=== PATIENT | male | born 1945 | race Hispanic/Latino ===

== ENCOUNTER 2019-07-29 07:46 | Emergency (ER) | payer SELFPAY ==
--- NOTE | 2019-07-29 09:31 | Emergency Department Report ---
ED Altered Mental Status HPI - General Chief Complaint: Altered Mental Status Stated Complaint: PULLED OUT CATH/AMS Time Seen by Provider: 07/29/19 09:06 Source: patient Mode of arrival: Ambulatory Limitations: No Limitations - History of Present Illness Initial Comments: Mr. Tirado is a 73-year-old male with history of hypertension, CVA, dementia, diabetes mellitus who presents with lethargy. Recently pulled out Quintana. Patient is nonverbal. Hx obtained from nurse report and EMR. Last month admitted for sepsis UTI pneumonia here at this hospital. provided additional history. After discharge from this hospital, Mr. Tirado was admitted at the [facility] for [facility]TI treatment. Quintana catheter was placed at that time. was concerned that he continued to pull the Quintana. Over the last few days, patient has not been himself. Patient has not been as talkative. Patient would not eat. called 911 due to bleeding after patient pulled out Quintana catheter. Patient is not on anticoagulation. He does take daily aspirin. MD Complaint: altered mental status, other (Lethargy) -: Gradual, days(s) (Several days) Severity: moderate Consistency of Symptoms: getting worse Context: history of similar presen, other (Recent illness history of dementia history of UTI sepsis pneumonia) - Related Data Home Medications Medication Instructions Recorded Confirmed Last Taken Aspirin EC [Halfprin EC] 81 mg PO QDAY 05/06/19 06/27/19 Unknown Ferrous Sulfate [Iron 325 MG] 325 mg PO BID 05/06/19 06/27/19 Unknown Previous Rx's Medication Instructions Recorded Last Taken Type hydrALAZINE [Apresoline TAB] 50 mg PO Q8HR tablet 05/19/19 Unknown Rx amLODIPine 10 mg PO QDAY #30 tablet 07/05/19 Unknown Rx Allergies Allergy/AdvReac Type Severity Reaction Status Date / Time codeine Allergy Unknown Verified 05/06/19 22:56 ED Review of Systems ROS: Stated complaint: PULLED OUT CATH/AMS Other details as noted in HPI Comment: Unobtainable due to pts medical conditions (Nonverbal status) ED Past Medical Hx - Past Medical History Previous Medical History?: Yes Hx Diabetes: Yes Hx Dementia: Yes Additional medical history: Hyperlipidemia, Renal neuropathy - Surgical History Past Surgical History?: No - Social History Smoking Status: Never Smoker Substance Use Type: None - Medications Home Medications: Home Medications Medication Instructions Recorded Confirmed Last Taken Type Aspirin EC [Halfprin EC] 81 mg PO QDAY 05/06/19 06/27/19 Unknown History Ferrous Sulfate [Iron 325 MG] 325 mg PO BID 05/06/19 06/27/19 Unknown History hydrALAZINE [Apresoline TAB] 50 mg PO Q8HR tablet 05/19/19 06/27/19 Unknown Rx amLODIPine 10 mg PO QDAY #30 tablet 07/05/19 Unknown Rx ED Physical Exam - General Limitations: No Limitations General appearance: alert, other (Appears slightly agitated multiple skin tears bruising on arms) - Head Head exam: Present: atraumatic, normocephalic, other (Ecchymoses just below the right eye) - Eye Eye exam: Present: normal appearance. Absent: scleral icterus, conjunctival injection - ENT ENT exam: Present: mucous membranes moist - Neck Neck exam: Present: normal inspection, full ROM - Respiratory Respiratory exam: Present: normal lung sounds bilaterally. Absent: respiratory distress, wheezes, rales, rhonchi - Cardiovascular Cardiovascular Exam: Present: regular rate, normal rhythm, normal heart sounds, systolic murmur, diastolic murmur. Absent: rubs, gallop - GI/Abdominal GI/Abdominal exam: Present: soft, normal bowel sounds. Absent: distended, tenderness, guarding, rebound - Rectal Rectal exam: Present: deferred - Extremities Exam Extremities exam: Present: normal inspection, other (Multiple skin tears and bruising) - Neurological Exam Neurological exam: Present: alert, other (Nonverbal) - Psychiatric Psychiatric exam: Present: agitated, flat affect - Skin Skin exam: Present: ecchymosis, other ED Course Vital Signs 07/29/19 07/29/19 07/29/19 08:24 10:26 12:58 Temperature 94.5 F L Pulse Rate 66 108 H Respiratory 16 16 Rate Blood Pressure 145/70 Blood Pressure 199/98 [Left] O2 Sat by Pulse 100 94 Oximetry 07/29/19 15:01 Temperature 101.2 F H Pulse Rate 82 Respiratory 16 Rate Blood Pressure Blood Pressure 108/57 [Left] O2 Sat by Pulse 96 Oximetry - Catheter Insertion (Urinary) Indications: other (Patient pulled out Quintana catheter.) Preparation: Providone-Iodine Type of Catheter Inserted: coude tip Topical Anesthesia Used: No Results: successfully catherized-immediate flow Patient Tolerated Procedure: well Complications: bloody urine Additional Comments: I was able to place 16 [place] coud Quintana catheter. Due to initial attempt by nurse, there was traumatic blood. Also suspect urethral injury or irritation due to patient pulling at the Quintana catheter. - Lab Data Result diagrams: 07/29/19 10:47 07/29/19 10:47 Lab Results 07/29/19 07/29/19 07/29/19 Range/Units 10:47 10:47 10:47 WBC 6.4 (4.5-11.0) K/mm3 RBC 3.37 L (3.65-5.03) M/mm3 Hgb 8.9 L (11.8-15.2) gm/dl Hct 27.3 L (35.5-45.6) % MCV 81 L (84-94) fl MCH 27 L (28-32) pg MCHC 33 (32-34) % RDW 16.2 H (13.2-15.2) % Plt Count 209 (140-440) K/mm3 Lymph % (Auto) 8.5 L (13.4-35.0) % Maverick % (Auto) 6.6 (0.0-7.3) % Eos % (Auto) 0.6 (0.0-4.3) % Baso % (Auto) 0.3 (0.0-1.8) % Lymph # 0.5 L (1.2-5.4) K/mm3 Maverick # 0.4 (0.0-0.8) K/mm3 Eos # 0.0 (0.0-0.4) K/mm3 Baso # 0.0 (0.0-0.1) K/mm3 Seg Neutrophils % 84.0 H (40.0-70.0) % Seg Neutrophils # 5.3 (1.8-7.7) K/mm3 PT (12.2-14.9) Sec. INR (0.87-1.13) APTT (24.2-36.6) Sec. Sodium 133 L (137-145) mmol/L Potassium 4.2 (3.6-5.0) mmol/L Chloride 94.5 L (98-107) mmol/L Carbon Dioxide 18 L (22-30) mmol/L Anion Gap 25 mmol/L BUN 74 H (9-20) mg/dL Creatinine 3.5 H (0.8-1.5) mg/dL Estimated GFR 17 ml/min BUN/Creatinine Ratio 21 % Glucose 149 H (75-100) mg/dL Lactic Acid 1.60 (0.7-2.0) mmol/L Calcium 10.1 (8.4-10.2) mg/dL Total Bilirubin 0.50 (0.1-1.2) mg/dL AST 16 (5-40) units/L ALT 7 (7-56) units/L Alkaline Phosphatase 120 (35-129) units/L Total Protein 7.9 (6.3-8.2) g/dL Albumin 3.9 (3.9-5) g/dL Albumin/Globulin Ratio 1.0 % TSH (0.270-4.200) mlU/mL Urine Color (Yellow) Urine Turbidity (Clear) Urine pH (5.0-7.0) Ur Specific Ogden (1.003-1.030) Urine Protein (Negative) mg/dL Urine Glucose (UA) (Negative) mg/dL Urine Ketones (Negative) mg/dL Urine Blood (Negative) Urine Nitrite (Negative) Urine Bilirubin (Negative) Urine Urobilinogen (<2.0) mg/dL Ur Leukocyte Esterase (Negative) Urine WBC (Auto) (0.0-6.0) /HPF Urine RBC (Auto) (0.0-6.0) /HPF Urine WBC Clumps /HPF 07/29/19 07/29/19 07/29/19 Range/Units 10:47 11:31 11:34 WBC (4.5-11.0) K/mm3 RBC (3.65-5.03) M/mm3 Hgb (11.8-15.2) gm/dl Hct (35.5-45.6) % MCV (84-94) fl MCH (28-32) pg MCHC (32-34) % RDW (13.2-15.2) % Plt Count (140-440) K/mm3 Lymph % (Auto) (13.4-35.0) % Maverick % (Auto) (0.0-7.3) % Eos % (Auto) (0.0-4.3) % Baso % (Auto) (0.0-1.8) % Lymph # (1.2-5.4) K/mm3 Maverick # (0.0-0.8) K/mm3 Eos # (0.0-0.4) K/mm3 Baso # (0.0-0.1) K/mm3 Seg Neutrophils % (40.0-70.0) % Seg Neutrophils # (1.8-7.7) K/mm3 PT 14.5 (12.2-14.9) Sec. INR 1.11 (0.87-1.13) APTT 34.9 (24.2-36.6) Sec. Sodium (137-145) mmol/L Potassium (3.6-5.0) mmol/L Chloride (98-107) mmol/L Carbon Dioxide (22-30) mmol/L Anion Gap mmol/L BUN (9-20) mg/dL Creatinine (0.8-1.5) mg/dL Estimated GFR ml/min BUN/Creatinine Ratio % Glucose (75-100) mg/dL Lactic Acid (0.7-2.0) mmol/L Calcium (8.4-10.2) mg/dL Total Bilirubin (0.1-1.2) mg/dL AST (5-40) units/L ALT (7-56) units/L Alkaline Phosphatase (35-129) units/L Total Protein (6.3-8.2) g/dL Albumin (3.9-5) g/dL Albumin/Globulin Ratio % TSH 3.540 (0.270-4.200) mlU/mL Urine Color Red (Yellow) Urine Turbidity Slightly-cloudy (Clear) Urine pH 7.0 (5.0-7.0) Ur Specific Ogden 1.012 (1.003-1.030) Urine Protein >500 (Negative) mg/dL Urine Glucose (UA) 150 (Negative) mg/dL Urine Ketones Neg (Negative) mg/dL Urine Blood Lg (Negative) Urine Nitrite Neg (Negative) Urine Bilirubin Neg (Negative) Urine Urobilinogen < 2.0 (<2.0) mg/dL Ur Leukocyte Esterase Mod (Negative) Urine WBC (Auto) 182.0 H (0.0-6.0) /HPF Urine RBC (Auto) > 182.0 (0.0-6.0) /HPF Urine WBC Clumps 2+ /HPF 07/29/19 10:50 EKG obtained 1039 Normal sinus rhythm rate 70 bpm normal axis QT interval no ST elevation prolonged MN interval normal T wave pattern - Radiology Data Radiology results: report reviewed, image reviewed Chest radiograph 1 view: No acute findings according to radiology impression CT head: Subdural hematoma on the left as well as a parafalcine component, small subdural blood on the right, subdural hematoma measures up to 11 mm in width on the left, parafalcine subdural measures 7 mm, small amount of subdural blood on the right measures 2 mm, 2 mm of midline shift to the right, no acute territorial infarct identified, There is a subcutaneous hematoma in the left cheek - Medical Decision Making Mr. Tirado presents with lethargy poor appetite. stated that patient fell and struck his face on the side of the bed. He did not fall out of bed. Findings today a large subdural hematoma with multiple areas of bleeding in the brain. Rectal temperature 94 hypothermia. requested transfer to [facility]. I spoke with ER physician at [facility] Dr. Suarez. She explained that the [facility] policy is to not allow ER to ER transfers. Patient can be transferred from an inpatient service during the . I spoke with [facility] neuro emt/paramedic Dr. Adryan Maldonado. Considering the findings and the baseline status of the patient, Dr. Maldonado recommended a very honest forthright conversation about the limitation of surgical intervention at this time. spoke with patient's family. decided on his own volition to initiate hospice palliative care. I am in full agreement that this course of action would be best for patient. We have contacted to hospice agencies. will arrange for the hospice care on Wednesday. I have prescribed cephalexin for UTI. According to the patient's wishes, stated that patient wanted to be at home during his end-of-life moment. Critical Care Time: Yes Critical care time in (mins) excluding proc time.: 100 Critical care attestation.: If time is entered above; I have spent that time in minutes in the direct care of this critically ill patient, excluding procedure time. 100 minutes of critical care time excluding procedures were used in the care of the patient. I reviewed electronic record. I discussed treatment plan with the nursing team members at the bedside. I came immediately to the bedside. I kept the informed. Patient required multiple interventions and reassessments. ED Disposition Clinical Impression: Subdural hematoma, acute, Acute encephalopathy, Urinary tract infection, CKD (chronic kidney disease) Disposition: DC-01 TO HOME OR SELFCARE Is pt being admited?: No Does the pt Need Aspirin: No Condition: Stable Instructions: Urinary Tract Infection in Men (ED), Subdural Hematoma (ED)
--- NOTE | 2019-07-29 09:56 | XRay Report ---
CHEST 1 VIEW INDICATION / CLINICAL INFORMATION: lethargy. COMPARISON: 06/29/2019 FINDINGS: SUPPORT DEVICES: None. HEART / MEDIASTINUM: No significant abnormality. LUNGS / PLEURA: No focal infiltrate is seen. No pneumothorax is seen.. There are low lung volumes bi laterally ADDITIONAL FINDINGS: No significant additional findings. IMPRESSION: 1. No acute findings. Signer Name: Jameel Ballard MD Signed: 07/29/2019 9:51 AM Workstation Name: [id number]
--- NOTE | 2019-07-29 11:02 | Cat Scan Report ---
CT HEAD WITHOUT CONTRAST INDICATION: Altered Mental Status TECHNIQUE: Axial slices were obtained through the head. Coronal and sagittal reformatted images were obtained. COMPARISON: None available. FINDINGS: There is subdural hematoma on the left and along the falx. There is a small amount of blood along the tentorium as well. Subdural hematoma measures up to 11 mm in width on the left. Parafalcine subdural measures approximately 7 mm. There is small amount of subdural blood on the right measures approxima tely 2 mm. No intraparenchymal hemorrhage is seen area. There is cortical atrophy. There is approxima tely 2 mm of midline shift to the right. No acute territorial infarct is identified. There is subcuta neous hematoma in the left cheek. Bone windows demonstrate no acute osseous abnormality. Paranasal sinuses and mastoid air cells appear clear. TECHNIQUE: All CT scans at this facility use dose modulation, iterative reconstruction, automated ex posure control, weight based dosing, when appropriate, to reduce radiation dose to as low as reasonab ly achievable. IMPRESSION: 1. There is subdural hematoma on the left as well as a parafalcine component. Small amount of subdura l blood is noted on the right. There is subdural blood noted along the tentorium and there is some bl ood noted posterior to the clivus. There is approximately 2 mm of midline shift to the left. CRITICAL RESULT: Dr. Blalard called this report to Dr. aLra at time 09 55 central time. Report was confirmed. Signer Name: Jameel Ballard MD Signed: 07/29/2019 10:57 AM Workstation Name: [id number]
[2019-07-29 11:18] LABS: Basophils % (Auto) 0.3 % (0.0-1.8); Eosinophils % (Auto) 0.6 % (0.0-4.3); Hematocrit 27.3 % (35.5-45.6); Hemoglobin 8.9 gm/dl (11.8-15.2); Lymphocytes # (Auto) 0.5 K/mm3 (1.2-5.4); Lymphocytes % (Auto) 8.5 % (13.4-35.0); Mean Corpuscular HGB Conc 33 % (32-34); Mean Corpuscular Volume 81 fl (84-94); Monocytes # (Auto) 0.4 K/mm3 (0.0-0.8); Monocytes % (Auto) 6.6 % (0.0-7.3); Platelet Count 209 K/mm3 (140-440); Red Blood Count 3.37 M/mm3 (3.65-5.03); Red Cell Distribution Width 16.2 % (13.2-15.2)
[2019-07-29 11:36] LABS: Albumin 3.9 g/dL (3.9-5); Calcium 10.1 mg/dL (8.4-10.2)
[2019-07-29 12:40] LABS: Bilirubin,Urine NEG (Negative); Blood,Urine LG (Negative); Color,Urine Red (Yellow); Urobilinogen,Urine < 2.0 mg/dL (<2.0)
[2019-07-29 12:44] LABS: Protein,Urine >500 mg/dL (Negative); RBC,Urine > 182.0 /HPF (0.0-6.0)
--- NOTE | 2019-07-29 12:48 | Cat Scan Report ---
CT cervical spine wo con INDICATION / CLINICAL INFORMATION: 73 years Male; fall out of bed. TECHNIQUE: Axial CT images of the cervical spine were obtained. Sagittal and coronal reformatted images were pr oduced. All CT scans at this location are performed using CT dose reduction for ALARA by means of aut omated exposure control. COMPARISON: None available. FINDINGS: POST-SURGICAL CHANGES: None. ALIGNMENT: There is mild curvature of the cervical spine, convex toward the left at. Additionally, th ere is approximately 3 mm of anterolisthesis at C3-4 which appears to be on a degenerative basis give n the facet joint arthropathy. There is slight anterolisthesis at C2-3 and T1-2 which also appear to be a on a degenerative basis at. 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 The motion and positioning degrade the image quality at. There is diffuse osteopenia. However, there is no definitive CT evidence of acute fracture or sub luxation involving the cervical spine. INTRAVERTEBRAL DISCS: There is reversal of the cervical lordosis. The facet joint hypertrophy at C3-4 appears result in moderate to marked neural foraminal narrowing though this may be exacerbated by th e degree of angulation. There is component of ankylosis at C4-5. There is marked foraminal narrowing bilaterally. There is marked disc space narrowing with mild endplate changes at C5-6. The posterior spondylosis ap pears to efface the ventral subarachnoid space at. There is moderate foraminal narrowing, greater on the left. There is marked foraminal narrowing bilaterally at C6-7. PARASPINAL SOFT TISSUES: No prevertebral soft tissue fluid collections are identified. There is mild to moderate atherosclerotic calcification involving the carotid bifurcations. ADDITIONAL FINDINGS: The findings correlate with the earlier CT head demonstrating left sided subdura l hematoma. There appears be a smaller component to on the right along the lateral right temporal lob e. IMPRESSION: 1. The motion and positioning degrade the image quality at. However, there is diffuse osteopenia with out definitive CT evidence of acute fracture involving the cervical spine. 2. There are multilevel degenerative the changes as detailed above. 3. 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 4. The included images of the brain correlate with the earlier CT head demonstrating bilateral subdur al hematomas, greater on the left. Signer Name: Mikey Thorpe MD Signed: 07/29/2019 12:44 PM Workstation Name: [id number]
[2019-07-29] MEDS ORDERED: cefTRIAXone/NS 2 GM/100 ML 2 GM/100 ML BAG IV ONE (14:48)
[2019-07-29 15:03] VITALS: BP 108/57
[2019-07-29] MEDS ORDERED: ACETAMINOPHEN 650 MG RECT SUPP PR ONE ×2 (15:06→15:12)
[2019-07-29 15:18] LABS: INR 1.11 (0.87-1.13); Partial Thromboplastin Time 34.9 Sec. (24.2-36.6)
== END 2019-07-29 16:00 | disposition home or self-care (01) ==
LOC: ED 07:46
DX: S06.5X9A Traumatic subdural hemorrhage with loss of consciousness of unspecified duration, initial encounter (principal); T83.098A Other mechanical complication of other urinary catheter, initial encounter; G93.49 Other encephalopathy; E11.22 Type 2 diabetes mellitus with diabetic chronic kidney disease; N18.9 Chronic kidney disease, unspecified; Z79.82 Long term (current) use of aspirin; Z79.899 Other long term (current) drug therapy; Z88.5 Allergy status to narcotic agent; Y84.0 Cardiac catheterization as the cause of abnormal reaction of the patient, or of later complication, without mention of misadventure at the time of the procedure; Y82.8 Other medical devices associated with adverse incidents
CPT/HCPCS: 36415; 51702; 70450; 71045; 72125; 80053; 81001; 82140; 84443; 85025; 85610; 85730; 87040; 87086; 93005; 93010; 96365; 99291; 99292; J0696